=== PATIENT | female | born 1960 | race Caucasian/White ===

== ENCOUNTER → 2017-10-29 | Outpatient (CLI) | payer BC ==
[~2017-10-29] MED LIST: AUG875 PO; CHOL10005 PO; CHOL500045 PO; DESV50TA9 PO; DOXY40CP4 PO; IBAN150T6 PO; IBUP-1618 PO; IBUP-1687 PO; L.AC1CAP6 PO; LISI-362 PO; LOR5/325 PO; METR55GE TP; OMEP-218 PO; [UNRECOGNIZED DRUG - CODE] PO
--- NOTE | 2017-10-30 08:27 | RADIOLOGY IMAGING REPORT ---
FACILITY: [facility] [place] PATIENT NAME: SAM WHITMORE : [id number] MR: [id number] V: [id number] EXAM DATE: ORDERING PHYSICIAN: JEN MARRUFO TECHNOLOGIST: Gilma Crowder PROCEDURE:BILATERAL DIGITAL SCREENING MAMMOGRAM WITH CAD ASSISTED INTERPRETATION & 3D TOMOSYNTHESIS COMPARISON:Prior mammograms 10/09/16, 11/21/15, 06/21/15 INDICATIONS:screening FINDINGS: A small amount of fibroglandular tissue is seen throughout the breasts. The parenchymal pattern has remained stable allowing for difference in mammographic technique & patient positioning. There is no evidence of malignant appearing mass, malignant appearing calcifications or other secondary sign of malignancy in either breast. DIAGNOSTIC CATEGORY 1--NEGATIVE. RECOMMENDATIONS: ROUTINE MAMMOGRAM AND CLINICAL EVALUATION. IMPRESSION: BIRADS 1: Negative No significant abnormality is seen. Dictated by: Ángela Martines M.D. on 10/29/2017 at 14:29 Transcribed by: JASON on 10/29/2017 at 14:45 Approved by: Ángela Martines M.D. on 10/30/2017 at 8:26 [facility]
== END ==
LOC: MAMO 02:01
PROVIDERS: ATTEND Nurse Practitioner Family
DX: Z12.31 Encounter for screening mammogram for malignant neoplasm of breast (principal)
CPT/HCPCS: 77063; 77067

== ENCOUNTER → 2018-01-17 | Outpatient (CLI) | payer BC ==
--- NOTE | 2018-01-17 11:05 | EKG ---
FACILITY: [facility] PATIENT NAME: SAM WHITMORE : [id number] MR: [id number] V: [id number] EXAM DATE: ORDERING PHYSICIAN: JEN MARRUFO TECHNOLOGIST: Test Reason : Blood Pressure : / mmHG Vent. Rate : 064 BPM Atrial Rate : 064 BPM P-R Int : 170 ms QRS Dur : 096 ms QT Int : 408 ms P-R-T Axes : 052 032 033 degrees QTc Int : 420 ms Normal sinus rhythm When compared with ECG of 21-OCT-2015 09:28, No significant change was found Confirmed by Piter Samayoa ([id number]) on 01/17/2018 5:27:29 PM Referred By: Confirmed By:Piter Arechiga
== END ==
LOC: LAB 10:33
PROVIDERS: ATTEND Anesthesiology
DX: Z01.810 Encounter for preprocedural cardiovascular examination (principal); Z01.812 Encounter for preprocedural laboratory examination; S72.21XA Displaced subtrochanteric fracture of right femur, initial encounter for closed fracture
CPT/HCPCS: 36415; 82040; 82247; 82310; 82374; 82435; 82565; 82947; 84075; 84132; 84155; 84295; 84450; 84460; 84520; 87081; 87880; 93005

== ENCOUNTER 2018-01-22 18:08 | Emergency (ER) | payer BC ==
--- NOTE | 2018-01-22 18:21 | ER Report ---
History and Physical Time Seen By MD: 18:20 Hx. of Stated Complaint: PT PRESENTS WITH PAIN IN R HIP AND DWON HER LEG, AFTE HAVING A SUB CONDRYLPLASTY AT [employer] THIS AM. DR TABOR SAID SHE WOULD BE MISERABLE FOR 3 DAYS , BUT SHE IS NOT ABLE TO HANDLE IT. HER PAIN MEDS ARE ONLY MINIMALLY HELPING. HPI/ROS CHIEF COMPLAINT: Postsurgical pain HISTORY OF PRESENT ILLNESS: This is a 57-year-old female who presents to the emergency department for postsurgical pain. Patient states that this morning she had a right hip sub-condyloplasty at [facility] this morning by Dr. Tabor. She was instructed to take her pain medications which she has been doing, she was also told that she would be miserable for several days the patient dates this is beyond miserable. Patient has no other complaints, no fevers, no aches or chills. No chest pain or shortness breath. Patient states she feels like the muscles are spasming. REVIEW OF SYSTEMS: Respiratory: No cough, no dyspnea. Cardiovascular: No chest pain, no palpitations. Gastrointestinal: No vomiting, no abdominal pain. Musculoskeletal: As above. Allergies: Coded Allergies: No Known Drug Allergies (Verified , 01/22/18) Home Meds Active Scripts Diazepam (VALIUM) 5 Mg Tablet, 5 MG PO 2-3XD, #15 TAB 0 Refills Prov:EDWIN PERDOMO Abi TOURIST GUIDE-BC 01/22/18 Reported Medications Scopolamine (Scopolamine) 1 Mg/3 Day Patch.td.3 01/22/18 Cyanocobalamin (Vitamin B-12) (B-12) 3,000 Mcg/Ml Drops 01/22/18 Aspirin (ASPIRIN) 81 Mg Tab.chew, 81 MG PO QDAY, TAB.CHEW 01/22/18 Oxycodone Hcl/Acetaminophen (PERCOCET 5-325 MG TABLET) 1 Each Tablet, 1 EACH PO , TAB 01/22/18 Ibuprofen (ADVIL) 200 Mg Tablet, 1-2 TAB PO Q6-8H Y for PAIN 10/21/15 Cholecalciferol (Vitamin D3) (VITAMIN D) 5,000 Unit Tablet, 5000 UNIT PO DAILY 10/21/15 Omeprazole Magnesium (PRILOSEC OTC) 20 Mg Tablet.dr, 1 TAB PO PRN TAKE ONE TABLET BY MOUTH TWICE A DAY 06/29/14 Desvenlafaxine Succinate (Pristiq) 50 Mg Tab.sr.24h, 50 MG PO QAM, 0 Refills 05/20/11 Discontinued Reported Medications L.acidoph & Brian Aguilarlactis (Probiotic) 1 Each Capsule, 1 TAB PO DAILY 10/21/15 Lisinopril (LISINOPRIL) 10 Mg Tablet, 10 MG PO QDAY, TAB 10/21/15 Discontinued Scripts Hydrocodone Bit/Acetaminophen (HYDROCODON-ACETAMINOPHEN 5-325) 1 Each Tablet, 1 EACH PO Q4-6H, #20 TAB Prov:ROSALIO SPAIN MD 10/25/15 Past Medical/Surgical History The patient has a past medical and surgical history of migraines, viral pericarditis, tachycardia at times, hypertension, occasional cough, hepatitis A as a child, fibromyalgia, arthritis, foot fracture 2, ankle fracture, wears glasses, partial thyroidectomy, rosacea, eczema, skin sensitivity, seasonal affective disorder, bowel resection, hysterectomy, right ankle ORIF, carpal tunnel release, right shoulder decompression, right hip surgery. Reviewed Nurses Notes: Yes Hx Smoking: No Smoking Status: Never Smoker Hx Substance Use Disorder: No Hx Alcohol Use: Yes (RARE) Constitutional Vital Sign - Last 24 Hours 01/22/18 01/22/18 01/22/18 01/22/18 18:14 18:22 18:23 18:30 Temp 99.0 Pulse 59 62 Resp 16 B/P (MAP) 150/84 (106) 152/75 (100) Pulse Ox 92 90 01/22/18 01/22/18 01/22/18 01/22/18 18:38 18:53 19:08 19:15 Pulse 60 56 60 B/P (MAP) 134/70 (91) Pulse Ox 91 95 93 01/22/18 01/22/18 01/22/18 01/22/18 19:23 19:30 19:38 19:53 Pulse 59 58 58 B/P (MAP) 151/75 (100) Pulse Ox 93 94 97 01/22/18 01/22/18 01/22/18 01/22/18 20:00 20:05 20:20 20:36 Pulse 60 60 66 B/P (MAP) 151/76 (101) 150/76 (100) Pulse Ox 92 90 93 O2 Delivery Room Air Physical Exam General Appearance: The patient is alert, has no immediate need for airway protection and no current signs of toxicity. Eyes: Pupils equal and round no injection. Respiratory: Chest is non tender, lungs are clear to auscultation. Cardiac: regular rate and rhythm. Gastrointestinal: Abdomen is soft and non tender, no masses, bowel sounds normal. Musculoskeletal: Neck: Neck is supple and non tender. Extremities range of motion present to the right leg. Surgical site is intact , Steri-Strips present minimal bleeding, no hematomas or dehiscence. CMS intact distal to the surgical site. Skin: No rashes or lesions. DIFFERENTIAL DIAGNOSIS: After history and physical exam differential diagnosis was considered for postsurgical pain. Medical Decision Making ED Course/Re-evaluation ED Course The patient was admitted to room. A history and physical were obtained. Differential diagnoses were considered. Patient was given 5 mg IM and Valium, 30 mg IM Toradol Which did seem to relieve some of the spasming. The patient states she is ready to go home, I did send in a prescription for Valium. Patient was instructed to continue with her current medications and follow-up with [facility] tomorrow. No other questions or concerns at this time patient was discharged home. Instructed to return to ER for any other concerns worsening symptoms. 01/22/2018 8:26:53 pm the patient states she is feeling better, well enough to go home. The prescription was sent over the patient's pharmacy they were able to pick this up. Decision to Disposition Date: Jan 22, 2018 Decision to Disposition Time: 20:27 Depart Departure Latest Vital Signs Vital Signs Date Time Temp Pulse Resp B/P (MAP) Pulse Ox O2 Delivery O2 Flow Rate FiO2 01/22/18 20:36 66 150/76 (100) 93 Room Air 01/22/18 18:14 99.0 16 Impression: Primary Impression: Pain following surgery or procedure Condition: Improved Disposition: HOME OR SELF-CARE Referrals: JEN MARRUFO (PCP) New Scripts Diazepam (VALIUM) 5 Mg Tablet 5 MG PO 2-3XD, #15 TAB 0 Refills Prov: EDWIN PERDOMO TOURIST GUIDE-BC 01/22/18 Patient Instructions: Hip Pain (ED) Additional Instructions: Drink plenty of fluids. Get plenty of rest. Take medications as prescribed. Follow-up with Dr. Tabor for any other concerns. Return to the emergency department for worsening symptoms. EDWIN PERDOMO TOURIST GUIDE-BC Jan 22, 2018 18:21
[2018-01-22] MEDS ORDERED: OXYC-865 PO (18:22)
[2018-01-22] MEDS ORDERED: ASPI81TA94 PO (18:22)
[2018-01-22] MEDS ORDERED: [UNRECOGNIZED DRUG - CODE] (18:25)
[2018-01-22] MEDS ORDERED: SCOP1PAT16 (18:25)
[2018-01-22] MEDS ORDERED: DIAZEPAM 50 MG/10 ML MDV IM ONE (19:05)
[2018-01-22] MEDS ORDERED: DIA5 PO (19:09)
[2018-01-22] MEDS ORDERED: KETOROLAC 30 MG/ML VIAL IM ONE (19:10)
[2018-01-22 20:36] VITALS: BP 150/76
== END 2018-01-22 20:59 | disposition home or self-care (01) ==
LOC: ER 18:32
DX: G89.18 Other acute postprocedural pain (principal); I10 Essential (primary) hypertension; Z79.899 Other long term (current) drug therapy
CPT/HCPCS: 96372; 99284; J1885; J3360

== ENCOUNTER 2018-05-29 15:15 | Emergency (ER) | payer BC ==
[~2018-05-29 15:15] MED LIST changes: +ASPI81TA94 PO; +DIA5 PO; +OXYC-865 PO; +SCOP1PAT16; +[UNRECOGNIZED DRUG - CODE]
--- NOTE | 2018-05-29 15:23 | ER Report ---
History and Physical Time Seen By MD: 15:23 HPI/ROS CHIEF COMPLAINT: Dizziness HISTORY OF PRESENT ILLNESS: Patient is a 57-year-old female here with complaints of dizziness since yesterday morning. Patient reports that her symptoms are positional and associated with nausea and vomiting. She has been able to keep down small amounts of fluids and denies prior history of vertigo. Patient does have a pronounced horizontal nystagmus which is right beading at time of evaluation with no presence of vertical or right or nystagmus. Patient denies taking medications for alleviation of symptoms or other alleviating factors aside from staying still and avoiding movement. Patient describes the dizziness as the room spinning on her. Patient denies recent illness, headaches, blurry vision, trauma. REVIEW OF SYSTEMS: Constitutional: No fever, no chills. Eyes: No discharge. ENT: No sore throat. Cardiovascular: No chest pain, no palpitations. Respiratory: No cough, no shortness of breath. Gastrointestinal: No abdominal pain, + nausea and vomiting. Genitourinary: No hematuria. Musculoskeletal: No back pain. Skin: No rashes. Neurological: No headache, + positional vertigo Allergies: Coded Allergies: No Known Drug Allergies (Verified , 05/29/18) Home Meds Active Scripts Meclizine Hcl (MECLIZINE HCL) 25 Mg Tablet, 25 MG PO BID PRN for DIZZINESS, #10 TAB Prov:MCKINNEYHEATHER Goldstein DO 05/29/18 Reported Medications Losartan Potassium (LOSARTAN POTASSIUM) 50 Mg Tablet, 50 MG PO QDAY 05/29/18 Cyanocobalamin (Vitamin B-12) (B-12) 3,000 Mcg/Ml Drops 01/22/18 Ibuprofen (ADVIL) 200 Mg Tablet, 1-2 TAB PO Q6-8H PRN for PAIN 10/21/15 Cholecalciferol (Vitamin D3) (VITAMIN D) 5,000 Unit Tablet, 5000 UNIT PO DAILY 10/21/15 Omeprazole Magnesium (PRILOSEC OTC) 20 Mg Tablet.dr, 1 TAB PO PRN TAKE ONE TABLET BY MOUTH TWICE A DAY 06/29/14 Desvenlafaxine Succinate (Pristiq) 50 Mg Tab.sr.24h, 50 MG PO QAM, 0 Refills 05/20/11 Discontinued Reported Medications Scopolamine (Scopolamine) 1 Mg/3 Day Patch.td.3 01/22/18 Aspirin (ASPIRIN) 81 Mg Tab.chew, 81 MG PO QDAY, TAB.CHEW 01/22/18 Oxycodone Hcl/Acetaminophen (PERCOCET 5-325 MG TABLET) 1 Each Tablet, 1 EACH PO, TAB 01/22/18 Discontinued Scripts Diazepam (VALIUM) 5 Mg Tablet, 5 MG PO 2-3XD, #15 TAB 0 Refills Prov:EDWIN PERDOMO SALES SERVICE PROFESSIONAL-BC 01/22/18 Hx Smoking: No Smoking Status: Never Smoker Hx Substance Use Disorder: No Hx Alcohol Use: Yes (RARE) Constitutional Vital Sign - Last 24 Hours 05/29/18 05/29/18 05/29/18 05/29/18 15:15 15:21 15:30 15:45 Temp 97.8 Pulse 62 59 55 Resp 16 10 9 B/P (MAP) 143/68 143/68 (93) 146/72 (96) Pulse Ox 94 97 97 O2 Delivery Room Air 05/29/18 05/29/18 05/29/18 05/29/18 15:50 16:00 16:05 16:20 Pulse 63 56 58 Resp 10 8 17 B/P (MAP) 134/68 (90) Pulse Ox 95 95 93 05/29/18 05/29/18 16:25 16:36 Pulse 55 Resp 11 B/P (MAP) 150/81 (104) Pulse Ox 93 Physical Exam General Appearance: The patient is alert, has no immediate need for airway protection and no signs of toxicity. Mild distress secondary to nausea and dizziness Eyes: Pupils equal and round no pallor or injection, + right beating horizontal nystagmus ENT, Mouth: Mucous membranes are moist. Respiratory: There are no retractions, lungs are clear to auscultation. Cardiovascular: Regular rate and rhythm. Gastrointestinal: Abdomen is soft and non tender, no masses, bowel sounds normal. Neurological: No focal neuro deficits Skin: Warm and dry, no rashes. Musculoskeletal: Neck is supple non tender. Extremities are nontender, nonswollen and have full range of motion. DIFFERENTIAL DIAGNOSIS: After history and physical exam differential diagnosis was considered for dizziness including but not limited to peripheral and central causes of vertigo, orthostatic causes including dehydration, and blood loss. Medical Decision Making ED Course/Re-evaluation ED Course Patient is a 57-year-old female here with new-onset vertigo suspected to be a peripheral in nature. Patient presents today with horizontal right beating nystagmus which is been noted to be positional, described as the room spinning on her without motor or neurological findings, recent illness, headache, blurred vision, chest pain or shortness breath, abdominal pain. Patient has been able to tolerate by mouth fluids in small quantities. She was given IV hydration, Va lium, Reglan for symptomatic treatment. Patient had significant relief of symptoms. Symptoms were consistent with peripheral vertigo with horizontal nystagmus, positional component of dizziness, absence of vertical or rotary nystagmus, headache or other neurological findings. Patient was discharged with prescription for meclizine for outpatient symptomatic treatment. Patient was ad vised to return promptly if she develop neurological findings including weakness, visual disturbances, headaches, fevers, intractable nausea or vomiting. Three-day PCP follow-up was recommended. Decision to Disposition Date: May 29, 2018 Decision to Disposition Time: 16:41 Depart Departure Latest Vital Signs Vital Signs Date Time Temp Pulse Resp B/P (MAP) Pulse Ox O2 Delivery O2 Flow Rate FiO2 05/29/18 16:36 150/81 (104) 05/29/18 16:25 55 11 93 05/29/18 15:15 97.8 Room Air Impression: Primary Impression: Peripheral vertigo Condition: Improved Disposition: HOME OR SELF-CARE Referrals: JEN MARRUFO (PCP) New Scripts Meclizine Hcl (MECLIZINE HCL) 25 Mg Tablet 25 MG PO BID PRN for DIZZINESS, #10 TAB Prov: HEATHER MCKINNEY DO 05/29/18 Patient Instructions: Benign Paroxysmal Positional Vertigo (ED), Meclizine (By mouth) Additional Instructions: Please drink plenty of water. You may take 1 tablet of meclizine every 8-12 hours as needed for dizziness and vertigo symptoms. Please return if you develop fevers, headaches, visual changes, extremity weakness, inability to keep down food or fluids. Please follow-up with your family doctor in the next 3 days for follow-up evaluation and care. HEATHER MCKINNEY DO May 29, 2018 15:23
[2018-05-29] MEDS ORDERED: LOSA50TA80 PO (15:25)
[2018-05-29] MEDS ORDERED: NS(*) 0.9% 1000 ML BAG 1,000 ML IV ONE (15:32)
[2018-05-29] MEDS ORDERED: DIAZEPAM 50 MG/10 ML MDV IVP ONE (15:35)
[2018-05-29] MEDS ORDERED: METOCLOPRAMIDE 10 MG/2 ML SDV IVP ONE (15:35)
[2018-05-29 16:36] VITALS: BP 150/81
[2018-05-29] MEDS ORDERED: MECL25TA9 PO (16:39)
== END 2018-05-29 16:45 | disposition home or self-care (01) ==
LOC: ER 15:33
DX: H81.399 Other peripheral vertigo, unspecified ear (principal)
CPT/HCPCS: 96374; 96375; 99284; J2765; J3360; J7030